=== PATIENT | female | born 1930 | race Caucasian/White ===

== ENCOUNTER → 2017-02-07 | Outpatient (CLI) | payer MEDICARE, BC ==
[~2017-02-07] MED LIST: ASPI1TAB69 PO; CALC500T37 PO; DENO60P SQ; MULTCAP2 PO; OCUVTAB PO; PROB1TAB PO
[2017-02-07 16:25] LABS: ALBUMIN 3.6 GM/DL (3.4-5.0); AST (GOT) 21 U/L (15-37); BICARBONATE 26.9 MEQ/L (21.0-32.0); BLOOD UREA NITROGEN 26 MG/DL (7-18); CHLORIDE 104 MEQ/L (98-107); CREATININE 0.82 MG/DL (0.50-1.00); GLOMERULAR FILTRATION RATE 66 ML/MIN (>89); GLUCOSE,RANDOM 84 MG/DL (74-106); SODIUM (NA) 138 MEQ/L (136-145)
[2017-02-07 16:27] LABS: ALT (GPT) 30 U/L (10-53)
[2017-02-07 16:28] LABS: ALKALINE PHOSPHATASE 79 U/L (45-117); TOTAL BILIRUBIN ADULT 0.7 MG/DL (0.2-1.0); TOTAL PROTEIN 6.8 GM/DL (6.4-8.2)
== END ==
LOC: PLAB 11:14
PROVIDERS: ATTEND Family Medicine
DX: N95.1 Menopausal and female climacteric states (principal)
CPT/HCPCS: 36415; 80053

== ENCOUNTER 2017-08-22 09:57 | Observation (INO) | payer MEDICARE, BC ==
[~2017-08-22] VITALS: Ht 170.2 cm; Wt 77.5 kg
[2017-08-22 10:13] VITALS: BP 133/71; PULSE 71; RESP 16; TEMP 98.4; O2SAT 98
[2017-08-22] MEDS ORDERED: ASPIRIN 81 MG CHEW TAB PO ONE (10:15)
[2017-08-22] MEDS ORDERED: SODIUM CHLORIDE 0.9% FLUSH 10 ML FLUSH IVF PRN (10:15)
[2017-08-22] MEDS ORDERED: SODIUM CHLORID 0.9% 500 ML INJ 500 ML IV ONE (10:15)
--- NOTE | 2017-08-22 10:22 | PD ---
HPI Chief Complaint: Chest Pain Time Seen by Provider: 10:07 Travel History International Travel<30 days: No Contact w/Intl Traveler<30days: No Traveled to known affect area: No History of Present Illness HPI The patient is a 87-year-old female who presents to the emergency department for elevated heart rate. The patient states she had some nausea and vomiting last night as well as 3 episodes of diarrhea which she described as small and loose. The patient then went to have an outpatient x-ray performed of her lower extremity this morning when she became short of breath. It was noted the patient's heart rate was elevated at that time and EMS was called. According to EMS the patient's heart rate was approximately 170, appear to be SVT, and the patient received adenosine 6 mg intravenously prior to arrival, her heart rate then went into the 70s and appear to be in a sinus rhythm. The patient denies any known history of atrial flutter, atrial fibrillation, or SVT. She does have a history of hypertension and is followed by her local athletic turf worker, Dr. Zhu. The patient states she had no chest pain at that time and her shortness of breath has resolved. The patient also states her nausea and vomiting has resolved and she has had no diarrhea since this morning. She does note subjective fevers without chills. Symptoms are moderate. 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.) Genitourinary: Yes (kidney cancer right side) Hepatitis: No Hiatal Hernia: No Hypertension: No Immune Disorder: No Implanted Vascular Access Dvce: No Musculoskeletal: No Neurologic: No Psychiatric: No Reproductive: No Respiratory: No Thyroid Disease: No ?: Not Menopausal: Yes Dilation and Curettage (D&C): Yes Past Surgical History Abdominal Surgery: Yes (gallbladder removed) Cholecystectomy: Yes Eye Surgery: Yes (nano cataract ) Genitourinary Surgery: Yes (RIGHT KIDNEY REMOVED ) Gynecologic Surgery: Yes (right oophorectomy d and c) Mastectomy: Yes (RIGHT) Thoracic Surgery: Yes (right breast removed) Other Surgery: Yes (RIGHT OVARY) Social History Alcohol Use: No Tobacco Use: No Substance Use: No Allergies-Medications (Allergen,Severity, Reaction): Coded Allergies: codeine (Unverified Allergy, Severe, HYPEREXCITED, 08/22/17) lovastatin (Unverified Allergy, Severe, MUSCLE CRAMPS, 08/22/17) RXN TO ALL STATINS Reported Meds & Prescriptions Reported Meds & Active Scripts Active Reported Aspirin Children's (Aspirin) 81 Mg Chew 81 Mg CHEW EVERY OTHER DAY Ocuvite (Multiple Vitamins W/ Minerals) 1 Tab 1 Tab PO DAILY Probiotic (Probiotic Product) 1 Tab Tab 1 Tab PO DAILY Calcium Ascorbate 500 Mg Tab 500 Mg PO BID Review of Systems Except as stated in HPI: all other systems reviewed are Neg General / Constitutional: Positive: Fever (Subjective) HENT: No: Lightheadedness Cardiovascular: Positive: Tachycardia, No: Chest Pain or Discomfort, Palpitations, Syncope Respiratory: Positive: Shortness of Breath Gastrointestinal: Positive: Nausea, Vomiting, Diarrhea, No: Abdominal Pain Neurologic: No: Dizziness, Syncope Physical Exam Narrative GENERAL: Awake, alert, pleasant 87-year-old female who appears her stated age and is in no acute respiratory distress. SKIN: Focused skin assessment warm/dry. HEAD: Atraumatic. Normocephalic. EYES: No injection or drainage. ENT: No nasal bleeding or discharge. Mucous membranes pink and moist. NECK: Trachea midline. No JVD. CARDIOVASCULAR: Regular rate and rhythm. No murmur appreciated. Heart rate in the 70s. RESPIRATORY: No accessory muscle use. Clear to auscultation. Breath sounds equal bilaterally. GASTROINTESTINAL: Abdomen soft, non-tender, nondistended. No rebound tenderness. MUSCULOSKELETAL: No obvious deformities. No clubbing. No cyanosis. No edema. NEUROLOGICAL: Awake and alert. No obvious cranial nerve deficits. Motor grossly within normal limits. Normal speech. PSYCHIATRIC: Appropriate mood and affect; insight and judgment normal. Data Data Last Documented VS Vital Signs Date Time Temp Pulse Resp B/P (MAP) Pulse Ox O2 Delivery O2 Flow Rate FiO2 08/22/17 10:27 16 98 Room Air 08/22/17 10:13 98.4 71 Orders Orders Electrocardiogram (08/22/17 10:15) Ckmb (Isoenzyme) Profile (08/22/17 10:15) Complete Blood Count With Diff (08/22/17 10:15) Comprehensive Metabolic Panel (08/22/17 10:15) Magnesium (Mg) (08/22/17 10:15) Prothrombin Time / Inr (Pt) (08/22/17 10:15) Act Partial Throm Time (Ptt) (08/22/17 10:15) Troponin I (08/22/17 10:15) Ecg Monitoring (08/22/17 10:15) Bilateral Bp Monitoring (08/22/17 10:15) Iv Access Insert/Monitor (08/22/17 10:15) Oximetry (08/22/17 10:15) Oxygen Administration (08/22/17 10:15) Aspirin Chew (Aspirin Chew) (08/22/17 10:15) Sodium Chloride 0.9% Flush (Ns Flush) (08/22/17 10:15) Sodium Chlorid 0.9% 500 Ml Inj (Ns 500 M (08/22/17 10:15) Admit Order (Ed Use Only) (08/22/17 12:08) Labs Laboratory Tests Test 08/22/17 10:15 White Blood Count 7.7 TH/MM3 Red Blood Count 3.71 MIL/MM3 Hemoglobin 11.8 GM/DL Hematocrit 34.8 % Mean Corpuscular Volume 94.0 FL Mean Corpuscular Hemoglobin 31.8 PG Mean Corpuscular Hemoglobin Concent 33.9 % Red Cell Distribution Width 14.5 % Platelet Count 217 TH/MM3 Mean Platelet Volume 9.1 FL Neutrophils (%) (Auto) 82.2 % Lymphocytes (%) (Auto) 6.0 % Monocytes (%) (Auto) 9.5 % Eosinophils (%) (Auto) 1.9 % Basophils (%) (Auto) 0.4 % Neutrophils # (Auto) 6.3 TH/MM3 Lymphocytes # (Auto) 0.5 TH/MM3 Monocytes # (Auto) 0.7 TH/MM3 Eosinophils # (Auto) 0.1 TH/MM3 Basophils # (Auto) 0.0 TH/MM3 CBC Comment DIFF FINAL Differential Comment Prothrombin Time 10.0 SEC Prothromb Time International Ratio 1.0 RATIO Activated Partial Thromboplast Time 19.1 SEC Blood Urea Nitrogen 28 MG/DL Creatinine 1.18 MG/DL Random Glucose 119 MG/DL Total Protein 6.4 GM/DL Albumin 3.3 GM/DL Calcium Level 8.0 MG/DL Magnesium Level 2.2 MG/DL Alkaline Phosphatase 74 U/L Aspartate Amino Transf (AST/SGOT) 31 U/L Alanine Aminotransferase (ALT/SGPT) 40 U/L Total Bilirubin 0.5 MG/DL Sodium Level 140 MEQ/L Potassium Level 4.4 MEQ/L Chloride Level 107 MEQ/L Carbon Dioxide Level 24.4 MEQ/L Anion Gap 9 MEQ/L Estimat Glomerular Filtration Rate 43 ML/MIN Total Creatine Kinase 94 U/L Troponin I 0.10 NG/ML MDM Medical Decision Making Medical Screen Exam Complete: Yes Emergency Medical Condition: Yes Medical Record Reviewed: Yes Interpretation(s) EKG reveals normal sinus rhythm with a rate of 70. Nonspecific T-wave changes. Laboratory Tests Test 08/22/17 10:15 White Blood Count 7.7 TH/MM3 Red Blood Count 3.71 MIL/MM3 Hemoglobin 11.8 GM/DL Hematocrit 34.8 % Mean Corpuscular Volume 94.0 FL Mean Corpuscular Hemoglobin 31.8 PG Mean Corpuscular Hemoglobin Concent 33.9 % Red Cell Distribution Width 14.5 % Platelet Count 217 TH/MM3 Mean Platelet Volume 9.1 FL Neutrophils (%) (Auto) 82.2 % Lymphocytes (%) (Auto) 6.0 % Monocytes (%) (Auto) 9.5 % Eosinophils (%) (Auto) 1.9 % Basophils (%) (Auto) 0.4 % Neutrophils # (Auto) 6.3 TH/MM3 Lymphocytes # (Auto) 0.5 TH/MM3 Monocytes # (Auto) 0.7 TH/MM3 Eosinophils # (Auto) 0.1 TH/MM3 Basophils # (Auto) 0.0 TH/MM3 CBC Comment DIFF FINAL Differential Comment Prothrombin Time 10.0 SEC Prothromb Time International Ratio 1.0 RATIO Activated Partial Thromboplast Time 19.1 SEC Blood Urea Nitrogen 28 MG/DL Creatinine 1.18 MG/DL Random Glucose 119 MG/DL Total Protein 6.4 GM/DL Albumin 3.3 GM/DL Calcium Level 8.0 MG/DL Magnesium Level 2.2 MG/DL Alkaline Phosphatase 74 U/L Aspartate Amino Transf (AST/SGOT) 31 U/L Alanine Aminotransferase (ALT/SGPT) 40 U/L Total Bilirubin 0.5 MG/DL Sodium Level 140 MEQ/L Potassium Level 4.4 MEQ/L Chloride Level 107 MEQ/L Carbon Dioxide Level 24.4 MEQ/L Anion Gap 9 MEQ/L Estimat Glomerular Filtration Rate 43 ML/MIN Total Creatine Kinase 94 U/L Troponin I 0.10 NG/ML Differential Diagnosis Differential diagnosis includes arrhythmia, atrial flutter, atrial fibrillation , SVT, ventricular tachycardia, pulmonary embolism, dehydration, gastroenteritis. Narrative Course IV was established, labs are drawn and sent, and the patient was placed on cardiac telemetry monitoring and continuous pulse oximetry monitoring. EKG was ordered and interpreted. The patient was administered normal saline 500 cc, electrolytes are sent to lab. The patient's electrolytes are unremarkable. Cardiac telemetry monitoring revealed the patient's heart rate maintained in the 60s and 70s with no rebound tachyarrhythmias. The shortness of breath had resolved. I highly doubt pulmonary embolism as the patient has no hypoxia and 1 dose of adenosine discontinued the tachyarrhythmia. I believe that the patient had a pulmonary embolism she would have been hypoxic and the tachyarrhythmia would have remains. The patient may have underlying SVT versus atrial flutter. She did have elevated troponin is 0.10, may be related to the tachyarrhythmia versus ischemia. Therefore, patient will be a 23 hour observation. Physician Communication Physician Communication I discussed the patient with Dr. Joiner who agrees with 23 hour observation. Diagnosis Primary Impression: Tachyarrhythmia Additional Impression: Elevated troponin Admitting Information Admitting Physician Requests: Observation Condition: Stable Noe Hernandez MD August 22, 2017 10:22
[2017-08-22 10:27] VITALS: RESP 16; O2SAT 98
[2017-08-22] MEDS ORDERED: ASPI81CH7 CHEW (10:31)
[2017-08-22 10:56] LABS: AUTOMATED NEUTROPHIL # 6.3 TH/MM3 (1.8-7.7); BASOPHIL % 0.4 % (0.0-2.0); EOSINOPHIL # 0.1 TH/MM3 (0-0.4); EOSINOPHIL % 1.9 % (0.0-4.0); HEMATOCRIT 34.8 % (35.0-46.0); HEMOGLOBIN 11.8 GM/DL (11.6-15.3); LYMPHOCYTE # 0.5 TH/MM3 (1.0-4.8); MEAN CORPUSCULAR HEMOGLOBIN 31.8 PG (27.0-34.0); MEAN CORPUSCULAR HGB CONC 33.9 % (32.0-36.0); MEAN PLATELET VOLUME 9.1 FL (7.0-11.0); MONO % 9.5 % (0.0-8.0); MONOCYTE # 0.7 TH/MM3 (0-0.9); NEUT % 82.2 % (16.0-70.0); PLATELET COUNT 217 TH/MM3 (150-450); RED BLOOD COUNT 3.71 MIL/MM3 (4.00-5.30); RED CELL DISTRIBUTION WIDTH 14.5 % (11.6-17.2); WHITE BLOOD COUNT 7.7 TH/MM3 (4.0-11.0)
[2017-08-22 11:37] LABS: ALBUMIN 3.3 GM/DL (3.4-5.0); ALKALINE PHOSPHATASE 74 U/L (45-117); ALT (GPT) 40 U/L (10-53); AST (GOT) 31 U/L (15-37); BLOOD UREA NITROGEN 28 MG/DL (7-18); CREATININE 1.18 MG/DL (0.50-1.00); GLOMERULAR FILTRATION RATE 43 ML/MIN (>89); GLUCOSE,RANDOM 119 MG/DL (74-106); MAGNESIUM 2.2 MG/DL (1.5-2.5); SODIUM (NA) 140 MEQ/L (136-145); TOTAL BILIRUBIN ADULT 0.5 MG/DL (0.2-1.0); TOTAL PROTEIN 6.4 GM/DL (6.4-8.2)
[2017-08-22 11:38] LABS: BICARBONATE 24.4 MEQ/L (21.0-32.0); CHLORIDE 107 MEQ/L (98-107)
[2017-08-22] MEDS ORDERED: SODIUM CHLORIDE 0.9% 500 ML BAG OTHER ONE (12:11)
[2017-08-22] MEDS ORDERED: ACETAMINOPHEN 500 MG CPLT PO PRN (13:00)
[2017-08-22] MEDS ORDERED: SODIUM CHLORIDE 0.9% FLUSH 10 ML FLUSH IV FLUSH PRN (13:00)
[2017-08-22] MEDS ORDERED: ENOXAPARIN SODIUM 40 MG/0.4 ML SYRINGE SQ SCH (13:00)
--- NOTE | 2017-08-22 13:08 | HHI.HP ---
cc: Brunilda Clark MD [facility] Service [facility] Primary Care Physician Brunilda Clark MD Admission Diagnosis Arrhythmia, elevated troponin Diagnoses: (1) Elevated troponin (2) Tachyarrhythmia Chief Complaint: Elevated heart rate Travel History International Travel<30 Days: No Contact w/Intl Traveler <30 Da: No Traveled to Known Affected Are: No History of Present Illness The patient is an 87 year old female brought to the ER for evaluation of elevated heart rate. She had nausea, vomiting, and 3 loose stools last night. This morning she went to have an outpatient xray done on her left leg, which has been painful for a few weeks. She was noted at that time to have elevated heart rate. EMS was called and patient's heart rate was approximately 170, apparently SVT. She was given adenosine 6 mg IV. She denies chest pain. She had some shortness of breath, but that has resolved. No nausea, vomiting, diarrhea today. Review of Systems Constitutional: DENIES: Fever, Chills, Night Sweats Eyes: DENIES: Blurred vision, Vision loss Ears, nose, mouth, throat: DENIES: Hearing loss Respiratory: DENIES: Cough, Wheezing, Sputum production, Shortness of breath Cardiovascular: DENIES: Chest pain, Palpitations, Dyspnea on Exertion, Lower Extremity Edema Gastrointestinal: DENIES: Abdominal pain, Constipation, Diarrhea, Nausea, Vomiting Genitourinary: DENIES: Urinary frequency, Urinary incontinence, Urgency, Hematuria, Dysuria, Nocturia Musculoskeletal: DENIES: Joint pain, Muscle aches Integumentary: DENIES: Pruritus, Rash Hematologic/lymphatic: DENIES: Bruising Neurologic: DENIES: Headache Past Family Social History Past Medical History History of breast cancer History of renal cancer History of lymphoma Past Surgical History Right nephrectomy with right oophorectomy Right mastectomy Cholecystectomy Bilateral cataract surgery Reported Medications Aspirin Children's (Aspirin) 81 Mg Chew 81 Mg CHEW EVERY OTHER DAY Ocuvite (Multiple Vitamins W/ Minerals) 1 Tab 1 Tab PO DAILY Probiotic (Probiotic Product) 1 Tab Tab 1 Tab PO DAILY Calcium Ascorbate 500 Mg Tab 500 Mg PO BID Allergies: Coded Allergies: codeine (Unverified Allergy, Severe, HYPEREXCITED, 08/22/17) lovastatin (Unverified Allergy, Severe, MUSCLE CRAMPS, 08/22/17) RXN TO ALL STATINS Family History Breast cancer Social History She quit smoking many years ago. Reports rare alcohol use. Denies illicit drug use. Physical Exam Vital Signs Vital Signs Date Time Temp Pulse Resp B/P (MAP) Pulse Ox O2 Delivery O2 Flow Rate FiO2 08/22/17 10:27 16 98 Room Air 08/22/17 10:13 98.4 71 16 133/71 (91) 98 Room Air Physical Exam GENERAL: Elderly female in no acute distress. HEENT: Normocephalic, atraumatic. Pupils equal, round and reactive. Extraocular movements intact. No scleral icterus. No injection or drainage. Oropharynx is clear. Mucous membranes are moist. CARDIOVASCULAR: Regular rate and rhythm without murmurs, gallops, or rubs. RESPIRATORY: Clear to auscultation. No wheezes, rales, or rhonchi. Breathing is non-labored. GASTROINTESTINAL: Abdomen soft, non-tender, nondistended. EXTREMITIES: No lower extremity edema. No calf tenderness. PSYCH: Alert and oriented x 3. Laboratory Laboratory Tests Test 08/22/17 10:15 White Blood Count 7.7 Red Blood Count 3.71 Hemoglobin 11.8 Hematocrit 34.8 Mean Corpuscular Volume 94.0 Mean Corpuscular Hemoglobin 31.8 Mean Corpuscular Hemoglobin Concent 33.9 Red Cell Distribution Width 14.5 Platelet Count 217 Mean Platelet Volume 9.1 Neutrophils (%) (Auto) 82.2 Lymphocytes (%) (Auto) 6.0 Monocytes (%) (Auto) 9.5 Eosinophils (%) (Auto) 1.9 Basophils (%) (Auto) 0.4 Neutrophils # (Auto) 6.3 Lymphocytes # (Auto) 0.5 Monocytes # (Auto) 0.7 Eosinophils # (Auto) 0.1 Basophils # (Auto) 0.0 CBC Comment DIFF FINAL Differential Comment Prothrombin Time 10.0 Prothromb Time International Ratio 1.0 Activated Partial Thromboplast Time 19.1 Blood Urea Nitrogen 28 Creatinine 1.18 Random Glucose 119 Total Protein 6.4 Albumin 3.3 Calcium Level 8.0 Magnesium Level 2.2 Alkaline Phosphatase 74 Aspartate Amino Transf (AST/SGOT) 31 Alanine Aminotransferase (ALT/SGPT) 40 Total Bilirubin 0.5 Sodium Level 140 Potassium Level 4.4 Chloride Level 107 Carbon Dioxide Level 24.4 Anion Gap 9 Estimat Glomerular Filtration Rate 43 Total Creatine Kinase 94 Troponin I 0.10 Result Diagram: 08/22/17 1015 08/22/17 1015 Caplouise VTE Risk Assessment Caprini VTE Risk Assessment: Mod/High Risk (score >= 2) Caprini Risk Assessment Model Point Value = 1 Point Value = 2 Point Value = 3 Point Value = 5 Age 41-60 Minor surgery BMI > 25 kg/m2 Swollen legs Varicose veins or History of unexplained or recurrent spontaneous Oral contraceptives or hormone replacement Sepsis (< 1 month) Serious lung disease, including pneumonia (< 1 month) Abnormal pulmonary function Acute myocardial infarction Congestive heart failure (< 1 month) History of inflammatory bowel disease Medical patient at bed rest Age 61-74 Arthroscopic surgery Major open surgery (> 45 min) Laparoscopic surgery (> 45 min) Malignancy Confined to bed (> 72 hours) Immobilizing plaster cast Central venous access Age >= 75 History of VTE Family history of VTE Factor V Leiden Prothrombin [id number] Lupus anticoagulant Anticardiolipin antibodies Elevated serum homocysteine Heparin-induced thrombocytopenia Other congenital or acquired thrombophilia Stroke (< 1 month) Elective arthroplasty Hip, pelvis, or leg fracture Acute spinal cord injury (< 1 month) Prophylaxis Regimen Total Risk Factor Score Risk Level Prophylaxis Regimen 0-1 Low Early ambulation 2 Moderate Order ONE of the following: *Sequential Compression Device (SCD) *Heparin 5000 units SQ BID 3-4 Higher Order ONE of the following medications: *Heparin 5000 units SQ TID *Enoxaparin/Lovenox 40 mg SQ daily (WT < 150 kg, CrCl > 30 mL/min) *Enoxaparin/Lovenox 30 mg SQ daily (WT < 150 kg, CrCl > 10-29 mL/min) *Enoxaparin/Lovenox 30 mg SQ BID (WT < 150 kg, CrCl > 30 mL/min) AND/OR *Sequential Compression Device (SCD) 5 or more Highest Order ONE of the following medications: *Heparin 5000 units SQ TID (Preferred with Epidurals) *Enoxaparin/Lovenox 40 mg SQ daily (WT < 150 kg, CrCl > 30 mL/min) *Enoxaparin/Lovenox 30 mg SQ daily (WT < 150 kg, CrCl > 10-29 mL/min) *Enoxaparin/Lovenox 30 mg SQ BID (WT < 150 kg, CrCl > 30 mL/min) AND *Sequential Compression Device (SCD) Assessment and Plan Assessment and Plan 1. Tachyarrhythmia: Patient is now in sinus rhythm with controlled rate. Continue telemetry monitoring. Consult cardiology. 2. Mildly elevated troponin: Check serial cardiac enzymes and EKGs. Consult cardiology. 3. Acute kidney injury: Patient is status post right nephrectomy. Monitor BUN and creatinine. Avoid nephrotoxins. Repeat labs in the morning. 4. DVT prophylaxis: Heparin. Yves Joiner MD August 22, 2017 13:08
[2017-08-22 13:47] VITALS: BP 142/63; PULSE 64; RESP 16; O2SAT 97
[2017-08-22] MEDS: HEPARIN SODIUM - SQ 10,000 UNITS/ML VIAL SQ SCH ×2 (14:00→21:04)
[2017-08-22 17:08] VITALS: BP 130/60; PULSE 68; RESP 20; TEMP 96.4; O2SAT 99
--- NOTE | 2017-08-22 18:20 | EKG ---
Date Performed: 08/22/2017 Time Performed: 10:32:21 PTAGE: 87 years EKG: Sinus rhythm NONSPECIFIC T-WAVE ABNORMALITY BORDERLINE ECG PREVIOUS TRACING : 02/27/2015 10.39 Since the previous tracing, no significant change noted DOCTOR: Mi Zhu Interpretating Date/Time 08/22/2017 18:19:29
--- NOTE | 2017-08-22 19:13 | MB ---
cc: Dank Blue MD, Vance E MD DATE: 08/22/2017 REASON FOR CONSULTATION: Evaluation of SVT. HISTORY OF PRESENT ILLNESS: Arleen Weinberg is an 87-year-old woman. She apparently has a prior history of SVT had an episode 3-4 years ago according to her. She started feeling bad at 6 p.m. last night, short of breath and dizzy. She went to Dr. Clark's office to have x-rays but, while there, they discovered that she was in SVT. EVAC came. We have strips clearly showing a regular SVT at 170, but it converts to sinus rhythm with IV adenosine. The patient denies any chest pain. She was not aware of her heart beating fast when this occurred. PAST MEDICAL HISTORY: Includes breast cancer, carotid disease, dyslipidemia, chronic dyspnea, hypertension, normal cardiac catheterization in 2009, previous SVT. PAST SURGICAL HISTORY: Includes carpal tunnel release, cataract repair, cholecystectomy, D and C, mastectomy right breast, nephrectomy of the right kidney, oophorectomy. FAMILY HISTORY: Negative for heart disease. SOCIAL HISTORY: She quit smoking in 1994. She started smoking; however, when she was young. She is . She lives alone. She has 4 children. She is from [place]. She worked as a manufacturing maintenance manager. REVIEW OF SYSTEMS: Noncontributory. ALLERGIES: CODEINE, LOVASTATIN PHYSICAL EXAMINATION: GENERAL: Well-developed, well-nourished, elderly female in no acute distress. VITAL SIGNS: Charted. HEENT: Unremarkable. NECK: No JVD. No bruits. CHEST: Clear to auscultation. CARDIOVASCULAR: S1, S2. Regular rate and rhythm, 2/6 systolic ejection murmur. ABDOMEN: Soft, nontender. EXTREMITIES: Good femoral pulses. Pedal pulses are reduced. CARDIOLOGY STUDIES: Her EKG shows sinus rhythm, some nonspecific T-wave flattening. LABORATORY DATA: Hematocrit is 34.8, troponin is 0.1, creatinine is 1.18. ASSESSMENT: An 83-year-old woman who appears to have been in SVT about 15 hours that broke with adenosine. This is not her first episode. She had a similar episode a few years ago. Troponin is nonspecifically elevated and she has a history of normal coronaries on a catheterization in 2009. RECOMMENDATIONS: I am going to to consult Dr. Poole to evaluate for possible electrophysiology study. Further therapy to be determined. MD AIDEE Burgess/ , 06:54 PM , 07:13 PM
[2017-08-22 19:30] LABS: TROPONIN I 0.17 NG/ML (0.02-0.05)
[2017-08-22 20:21] VITALS: BP 133/59; PULSE 75; RESP 18; TEMP 98.1; O2SAT 99
[2017-08-22] MEDS ORDERED: [UNRECOGNIZED DRUG - OTHER] PO SCH (21:00)
[2017-08-22] MEDS: SODIUM CHLORIDE 0.9% FLUSH 10 ML FLUSH IV FLUSH SCH (21:03)
[2017-08-23] VITALS (11 sets, daily range): BP systolic 131–176; BP diastolic 58–74; PULSE 61–84; RESP 16–18; TEMP 98–98.6; O2SAT 94–99
[2017-08-23 00:41] LABS: TROPONIN I 0.18 NG/ML (0.02-0.05)
[2017-08-23] MEDS: HEPARIN SODIUM - SQ 10,000 UNITS/ML VIAL SQ SCH ×3 (05:49→21:19)
[2017-08-23 07:37] LABS: BICARBONATE 24.6 MEQ/L (21.0-32.0); CREATININE 0.84 MG/DL (0.50-1.00)
[2017-08-23] MEDS: MULTIVITAMIN-OPHTHALMIC 1 TAB PO SCH (08:46)
[2017-08-23] MEDS: SODIUM CHLORIDE 0.9% FLUSH 10 ML FLUSH IV FLUSH SCH ×2 (08:49→21:19)
--- NOTE | 2017-08-23 09:12 | HHI.PR ---
Subjective Remarks Follow up for SVT. The patient denies any chest pain, palpitations, shortness of breath overnight. Denies any lightheadedness or dizziness. Patient explains that she initially went to her primary care's office yesterday for evaluation of left knee pain after she hit it on a dresser. She reports diffuse left anterior knee pain with some associated swelling. She states she has had difficulty ambulating but is still able to take a few steps. She also reports over the past few days she has had some congestion and yesterday she coughed up some green phlegm. She states that since then her cough has improved and has only produced clear sputum. She states her doctor told her he would check a chest x-ray. Otherwise patient denies any other medical complaints including no fever/chills, abdominal pain, diarrhea, or urinary complaints. Objective Vitals Vital Signs Date Time Temp Pulse Resp B/P (MAP) Pulse Ox O2 Delivery O2 Flow Rate FiO2 08/23/17 07:21 98.6 65 18 176/71 (106) 99 08/23/17 05:15 15 08/23/17 04:30 98.3 70 16 158/68 (98) 94 08/23/17 03:45 70 08/23/17 00:54 98.0 70 16 131/58 (82) 94 08/23/17 00:35 61 08/22/17 20:21 98.1 75 18 133/59 (83) 99 08/22/17 17:08 96.4 68 20 130/60 (83) 99 08/22/17 15:04 08/22/17 13:47 64 16 142/63 (89) 97 Room Air 08/22/17 10:27 16 98 Room Air 08/22/17 10:13 98.4 71 16 133/71 (91) 98 Room Air I/O 08/22/17 08/22/17 08/22/17 08/23/17 08/23/17 08/23/17 07:00 15:00 23:00 07:00 15:00 23:00 Intake Total 500 ml Balance 500 ml Intake IV Total 500 ml Result Diagram: 08/22/17 1015 08/23/17 0640 Objective Remarks GENERAL: Well-nourished, well-developed pleasant elderly female patient in [facility]. SKIN: Warm and dry. No rash. HEENT: Normocephalic. Atraumatic. Pupils equal and round. Mucous membranes pink and moist. NECK: Supple. Trachea midline. CARDIOVASCULAR: Regular rate and rhythm. 2/6 systolic ejection murmur. RESPIRATORY: No accessory muscle use. Clear to auscultation. Breath sounds equal bilaterally. GASTROINTESTINAL: Abdomen soft, non-tender, nondistended. Normoactive bowel sounds x4. MUSCULOSKELETAL: No obvious deformities. Extremities without clubbing, cyanosis , or edema. Left anterior knee with minimal edema, no ecchymosis, tender to palpation at medial aspect, pain upon active ROM. NEUROLOGICAL: Awake and alert. No obvious cranial nerve deficits. Motor grossly within normal limits. Moving all extremities spontaneously. Normal speech. PSYCHIATRIC: Appropriate mood and affect; insight and judgment normal. Medications and IVs Current Medications Medications (Trade) Dose Ordered Sig/Juan Route Start Time Stop Time Status Last Admin (Aspirin Chew) 81 mg EVERY OTHER DAY CHEW 08/24/17 09:00 (Ocuvite) 1 tab DAILY PO 08/23/17 09:00 08/23/17 08:46 Patient Own Medication PT OWN MED: CALC... BID PO 08/22/17 21:00 Future Hold (NS Flush) 2 ml BID IV FLUSH 08/22/17 21:00 08/23/17 08:49 (NS Flush) 2 ml UNSCH PRN IV FLUSH 08/22/17 13:00 (Tylenol) 500 mg Q4H PRN PO 08/22/17 13:00 08/23/17 04:15 (Heparin Inj) 5,000 units Q8HR SQ 08/22/17 14:00 08/23/17 05:49 A/P Problem List: (1) Elevated troponin ICD Code: R74.8 - Abnormal levels of other serum enzymes Status: Acute (2) Tachyarrhythmia ICD Code: R00.0 - Tachycardia, unspecified Status: Acute Assessment and Plan 87-year-old female with history of breast cancer s/p right mastectomy, renal cancer s/p right nephrectomy, lymphoma in remission, presents via EVAC with SVT. SVT: Patient's HR 170, rhythm SVT, given IV adenosine 6 mg 1 en route via EVAC , with good response.\ -Continue patient's aspirin -Monitor on telemetry -Serial troponins trended 0.10 --> 0.17 --> 0.18. Suspect secondary to cardiac demand with SVT. -Cardiology consulted, Dr. Blue requested evaluation by EP bail bonding agent Dr. Poole -Check echocardiogram -HR has been controlled since arrival Elevated Troponin: suspect secondary to cardiac demand from arrhythmia as above. -no complaints of chest pain -cardiology consulted as above RONALD: patient is s/p right nephrectomy. Cr 1.18, previously Cr 0.93 in . -avoid nephrotoxins -s/p IVF hydration -repeat Cr 0.84, resolved Left Knee Pain: suspect knee sprain vs contusion. Patient injured left knee on dresser. -check left knee xray -ice pack prn -PT consult Cough/Congestion: suspect viral URI, however rule out pneumonia. Afebrile, no leukocytosis. -check chest xray DVT Prophylaxis: heparin sq Discharge Planning Discharge pending CXR, knee xray, Echocardiogram, and evaluation by Dr. Poole. Rena Ortiz PA-C August 23, 2017 9:12 am
--- NOTE | 2017-08-23 10:46 | RADRPT ---
EXAM DATE/TIME: 08/23/2017 10:08 [facility] COMPARISON: No previous studies available for comparison. INDICATIONS : Left anterior knee pain. MEDICAL HISTORY : Carcinoma, breast. Lymphoma. SURGICAL HISTORY : Mastectomy, right. Nephrectomy, right. Cholecystectomy. Hysterectomy. Oophorectomy, right. ENCOUNTER: Initial ACUITY: 2 days PAIN SCORE: 5/10 LOCATION: Left knee. FINDINGS: Four view examination of the left knee demonstrates no evidence of fracture or dislocation. Bony min eralization is normal there is mild joint space narrowing and osteophyte formation in the medial and patellofemoral compartments. Patella is intact. The suprapatellar soft tissues have a normal configur ation. CONCLUSION: 1. Mild degenerative osteoarthritis of the medial and patellofemoral compartments. 2. No acute fracture or dislocation. Nader Medina MD on August 23, 2017 at 10:41 Board Certified Radiologist. This report was verified electronically.
--- NOTE | 2017-08-23 10:48 | RADRPT ---
EXAM DATE/TIME: 08/23/2017 10:10 [facility] COMPARISON: CHEST PA & LAT, June 27, 2010, 8:51. INDICATIONS : Cough. MEDICAL HISTORY : Carcinoma, breast. Lymphoma. SURGICAL HISTORY : Mastectomy, right. Nephrectomy, right. Cholecystectomy. Hysterectomy. Oophorectomy, right. ENCOUNTER: Initial ACUITY: 2 days PAIN SCORE: 0/10 LOCATION: Bilateral chest FINDINGS: Diffuse interstitial prominence without new focal pleural or parenchymal opacities. Cardiomediastinal contours are within normal limits. Bony thorax is intact. CONCLUSION: 1. No acute cardiopulmonary disease. Nader Medina MD on August 23, 2017 at 10:44 Board Certified Radiologist. This report was verified electronically.
--- NOTE | 2017-08-23 21:32 | MB ---
cc: Kevin Poole MD DATE: 08/23/2017 REASON FOR CONSULTATION: Supraventricular tachyarrhythmia. HISTORY OF PRESENT ILLNESS: Mrs. Weinberg is an 87-year-old female with history of tachyarrhythmia, previous ablation around 4 years ago. According to the patient, history of tachyarrhythmia recorded. The last hospitalization was around 4 years ago. It was at her primary physician's office, developed supraventricular tachyarrhythmia. EVAC was called. The patient received adenosine, went into sinus rhythm. Was admitted, evaluated by Dr. Blue. I was consulted for evaluation and management. The chart was reviewed. The patient was evaluated. ALLERGIES: CODEINE AND LOVASTATIN. SOCIAL HISTORY: The patient denies smoking and drinking. FAMILY HISTORY: Noncontributory to her current medical condition. MEDICATIONS: Currently Mrs. Weinberg is on acetaminophen, aspirin, heparin. REVIEW OF SYSTEMS: She has had no chest pain, no chest discomfort. No fever. PHYSICAL EXAMINATION: GENERAL: Alert, fully oriented. VITAL SIGNS: Blood pressure 152/68, pulse 68, respiratory rate 18. LUNGS: Good air entry bilaterally. CARDIOVASCULAR: S1, S2. Regular. ABDOMEN: Soft. No mass. EXTREMITIES: No edema. DIAGNOSTIC DATA: Electrocardiogram on hospitalization, supraventricular tachyarrhythmia. Short VA time, later on 170 beats per minute. ____ electrocardiogram shows sinus rhythm, diffuse ST changes. LABORATORY DATA: Hemoglobin 11.8, white blood cells, 77, potassium 4.0, creatinine 0.84. Troponin 0.18, INR 1.0. ASSESSMENT AND RECOMMENDATIONS: Mrs. Weinberg ____ recorded visit of tachyarrhythmia. She is very symptomatic. The last one, she had to be brought to the emergency room. She referred no chest pain or discomfort. Troponin is okay. This is a short VA time tachyarrhythmia. I had a long conversation with her and her son. Electrophysiology study and ablation discussed. The risks, the nature and the benefits of the procedure are clearly stated to her and her son. The risks include pneumothorax, cardiac perforation, stroke and even . They understand and agreed to proceed. The patient is going to be transferred to CICU unit. Ablation Monday morning. MD Faye Mayes , 08:21 PM , 08:50 PM
--- NOTE | 2017-08-23 22:24 | EKG ---
Date Performed: 08/22/2017 Time Performed: 23:06:30 PTAGE: 87 years EKG: Sinus rhythm WITH OCCASIONAL SUPRAVENTRICULAR PREMATURE COMPLEXES NONSPECIFIC ST & T-WAVE ABNORMALITY BORDERLINE ECG PREVIOUS TRACING : 08/22/2017 16.35 Since the previous tracing, no significant change noted DOCTOR: Larry Doyle Interpretating Date/Time 08/23/2017 22:21:53
--- NOTE | 2017-08-23 22:31 | EKG ---
Date Performed: 08/22/2017 Time Performed: 16:35:42 PTAGE: 87 years EKG: Sinus rhythm NONSPECIFIC T-WAVE ABNORMALITY BORDERLINE ECG NO PREVIOUS TRACING DOCTOR: Larry Doyle Interpretating Date/Time 08/23/2017 22:30:18
[2017-08-24] VITALS (31 sets, daily range): BP systolic 127–150; BP diastolic 60–73; PULSE 54–93; RESP 16–18; TEMP 98.1–98.8; O2SAT 97–99
[2017-08-24] MEDS: HEPARIN SODIUM - SQ 10,000 UNITS/ML VIAL SQ SCH ×3 (05:19→20:42)
[2017-08-24] MEDS ORDERED: ASPIRIN 81 MG CHEW TAB CHEW SCH (09:00)
[2017-08-24] MEDS: MULTIVITAMIN-OPHTHALMIC 1 TAB PO SCH (09:27)
[2017-08-24] MEDS: SODIUM CHLORIDE 0.9% FLUSH 10 ML FLUSH IV FLUSH SCH ×2 (09:28→20:43)
[2017-08-24] MEDS ORDERED: RESP: ALBUTEROL 2.5 MG/IPRATROPIUM 0.5 MG NEB (PRN) NEB (13:30)
--- NOTE | 2017-08-24 14:14 | ECHRPT ---
Indication: Atherosclerotic heart disease of [place] coronary artery with unstable angina pectoris CONCLUSIONS The left ventricular systolic function is low normal with estimated ejection fraction of 50%. No de finite regional wall motion abnormalities.Wall thickness is normal. Normal left ventricular size. No definite significant valvular abnormalities are identified. BP: 176 / 71 HR: 65 Rhythm: Sinus MEASUREMENTS (Male / Female) Normal Values Technical Quality:Fair 2D ECHO LV Diastolic Diameter PLAX 4.3 cm 4.2 - 5.9 / 3.9 - 5.3 cm LV Systolic Diameter PLAX 3.4 cm IVS Diastolic Thickness 0.9 cm 0.6 - 1.0 / 0.6 - 0.9 cm LVPW Diastolic Thickness 0.9 cm 0.6 - 1.0 / 0.6 - 0.9 cm LV Relative Wall Thickness 0.4 LVOT Diameter 1.9 cm M-MODE Aortic Root Diameter MM 2.1 cm LA Systolic Diameter MM 3.0 cm LA Ao Ratio MM 1.4 AV Cusp Separation MM 1.6 cm DOPPLER AV Peak Velocity 137.0 cm/s AV Peak Gradient 7.5 mmHg LVOT Peak Velocity 75.0 cm/s LVOT Peak Gradient 2.3 mmHg AV Area Cont Eq pk 1.6 cm Mitral E Point Velocity 112.0 cm/s Mitral A Point Velocity 90.8 cm/s Mitral E to A Ratio 1.2 LV E' Lateral Velocity 5.9 cm/s Mitral E to LV E' Lateral Ratio 19.1 LV E' Septal Velocity 7.3 cm/s Mitral E to LV E' Septal Ratio 15.3 PV Peak Velocity 115.0 cm/s PV Peak Gradient 5.3 mmHg FINDINGS LEFT VENTRICLE The left ventricular systolic function is low normal with estimated ejection fraction of 50%. No de finite regional wall motion abnormalities.Wall thickness is normal. Normal left ventricular size. RIGHT VENTRICLE Normal right ventricular size and systolic function. LEFT ATRIUM The left atrial size is normal. RIGHT ATRIUM The right atrial size is normal. ATRIAL SEPTUM Normal atrial septal thickness without atrial level shunting by limited color doppler interrogation. AORTA The aortic root and proximal ascending aorta are normal in size on limited imaging. MITRAL VALVE Structurally normal mitral valve. No mitral valve stenosis or regurgitation. AORTIC VALVE Trileaflet aortic valve. No aortic valve stenosis or regurgitation. TRICUSPID VALVE Structurally normal tricuspid valve. No tricuspid valve stenosis or regurgitation. PULMONARY VALVE The pulmonary valve is not well visualized. VESSELS The inferior vena cava is normal in size. PERICARDIUM No pericardial effusion. Castro Medrano MD (Electronically Signed) Final Date:24 Aug 2017 14:13
[2017-08-24] MEDS: RESP: ALBUTEROL 2.5 MG/IPRATROPIUM 0.5 MG NEB (SCH) NEB ×2 (15:44→19:10)
--- NOTE | 2017-08-24 18:25 | HHI.PR ---
Subjective Remarks Patient resting in bed no chest pain no palpitation he does have wheezing on physical exam no fever or chills Objective Vitals Vital Signs Date Time Temp Pulse Resp B/P (MAP) Pulse Ox O2 Delivery O2 Flow Rate FiO2 08/24/17 18:14 93 08/24/17 17:00 80 08/24/17 16:00 68 08/24/17 15:49 98 Nasal Cannula 2.00 08/24/17 15:20 98.5 68 18 148/69 (95) 99 08/24/17 15:00 68 08/24/17 14:03 71 08/24/17 14:00 70 08/24/17 13:00 70 08/24/17 12:00 54 08/24/17 11:26 98.2 69 18 127/65 (85) 98 08/24/17 11:00 60 08/24/17 10:00 60 08/24/17 09:00 74 08/24/17 08:00 70 08/24/17 07:42 96 Nasal Cannula 1.00 08/24/17 07:42 98.5 68 17 138/62 (87) 97 08/24/17 07:00 57 08/24/17 06:00 70 08/24/17 05:00 66 08/24/17 04:00 98.4 63 18 131/60 (83) 99 08/24/17 04:00 66 08/24/17 04:00 95 Nasal Cannula 08/24/17 03:00 70 08/24/17 02:00 66 08/24/17 01:00 66 08/24/17 00:00 99 Nasal Cannula 08/24/17 00:00 71 08/24/17 00:00 98.1 70 18 150/73 (98) 99 08/23/17 23:00 74 08/23/17 22:06 78 08/23/17 21:40 94 Room Air 08/23/17 21:40 98.2 84 18 163/74 (103) 94 08/23/17 20:46 98.4 76 18 163/62 (95) 96 I/O 08/23/17 08/23/17 08/23/17 08/24/17 08/24/17 08/24/17 07:00 15:00 23:00 07:00 15:00 23:00 Intake Total 240 ml 480 ml Output Total 350 ml 650 ml Balance -110 ml -170 ml Intake Oral 240 ml 480 ml Output Urine Total 350 ml 650 ml # Voids 2 # Bowel Movements 0 Result Diagram: 08/22/17 1015 08/23/17 0640 Objective Remarks GENERAL: This is a well-nourished, well-developed patient, in no apparent distress. CARDIOVASCULAR: RRR, no gallops, or rubs. RESPIRATORY: Positive wheezing bilaterally GASTROINTESTINAL: Abdomen soft, non-tender, nondistended. Positive bowel sounds MUSCULOSKELETAL: Extremities without clubbing, cyanosis, or edema. Pedal pulses appreciated NEUROLOGICAL: Awake and alert. Moves all extremity. Normal speech.no focal neurological deficit A/P Problem List: (1) Elevated troponin ICD Code: R74.8 - Abnormal levels of other serum enzymes Status: Acute (2) Tachyarrhythmia ICD Code: R00.0 - Tachycardia, unspecified Status: Acute Assessment and Plan 87-year-old female with history of breast cancer s/p right mastectomy, renal cancer s/p right nephrectomy, lymphoma in remission, presents via [facility] with SVT. 08/24: Creatinine improved to 0.84, patient going for ablation in a.m., appreciate cardiology follow-up, patient having significant wheezing will place order for DuoNeb SVT: Patient's HR 170, rhythm SVT, given IV adenosine 6 mg 1 en route via EVAC , with good response.\ -Continue patient's aspirin -Monitor on telemetry -Serial troponins trended 0.10 --> 0.17 --> 0.18. Suspect secondary to cardiac demand with SVT. -Cardiology consulted, Dr. Blue requested evaluation by EP mailer apprentice Dr. Poole -Check echocardiogram -HR has been controlled since arrival Elevated Troponin: suspect secondary to cardiac demand from arrhythmia as above. -no complaints of chest pain -cardiology consulted as above RONALD: patient is s/p right nephrectomy. Cr 1.18, previously Cr 0.93 in . -avoid nephrotoxins -s/p IVF hydration -repeat Cr 0.84, resolved Left Knee Pain: suspect knee sprain vs contusion. Patient injured left knee on dresser. -check left knee xray -ice pack prn -PT consult Cough/Congestion: suspect viral URI, however rule out pneumonia. Afebrile, no leukocytosis. -check chest xray DVT Prophylaxis: heparin sq Discharge Planning Discharge pending CXR, knee xray, Echocardiogram, and evaluation by Dr. Poole. Gerardo Radford MD August 24, 2017 18:25
--- NOTE | 2017-08-24 20:40 | HHI.PR ---
Subjective Remarks Feeling ok Objective Vital Signs Date Time Temp Pulse Resp B/P (MAP) Pulse Ox O2 Delivery O2 Flow Rate FiO2 08/24/17 18:14 93 08/24/17 17:00 80 08/24/17 16:00 68 08/24/17 15:49 98 Nasal Cannula 2.00 08/24/17 15:20 98.5 68 18 148/69 (95) 99 08/24/17 15:00 68 08/24/17 14:03 71 08/24/17 14:00 70 08/24/17 13:00 70 08/24/17 12:00 54 08/24/17 11:26 98.2 69 18 127/65 (85) 98 08/24/17 11:00 60 08/24/17 10:00 60 08/24/17 09:00 74 08/24/17 08:00 70 08/24/17 07:42 96 Nasal Cannula 1.00 08/24/17 07:42 98.5 68 17 138/62 (87) 97 08/24/17 07:00 57 08/24/17 06:00 70 08/24/17 05:00 66 08/24/17 04:00 98.4 63 18 131/60 (83) 99 08/24/17 04:00 66 08/24/17 04:00 95 Nasal Cannula 08/24/17 03:00 70 08/24/17 02:00 66 08/24/17 01:00 66 08/24/17 00:00 99 Nasal Cannula 08/24/17 00:00 71 08/24/17 00:00 98.1 70 18 150/73 (98) 99 08/23/17 23:00 74 08/23/17 22:06 78 08/23/17 21:40 94 Room Air 08/23/17 21:40 98.2 84 18 163/74 (103) 94 08/23/17 20:46 98.4 76 18 163/62 (95) 96 I/O 08/23/17 08/23/17 08/23/17 08/24/17 08/24/17 08/24/17 07:00 15:00 23:00 07:00 15:00 23:00 Intake Total 240 ml 480 ml Output Total 350 ml 650 ml Balance -110 ml -170 ml Intake Oral 240 ml 480 ml Output Urine Total 350 ml 650 ml # Voids 2 # Bowel Movements 0 Result Diagram: 08/22/17 1015 08/23/17 0640 Imaging Alert, fully oriented Lungs: Ventilated Heart: S1, S2 regular, no gallop Abdomen: soft, no mass Ext: no edema Last Impressions Knee X-Ray 08/23/17 0000 Signed Impressions: Service Date/Time: Wednesday, August 23, 2017 10:08 - CONCLUSION: 1. Mild degenerative osteoarthritis of the medial and patellofemoral compartments. 2. No acute fracture or dislocation. Nader Medina MD Chest X-Ray 08/23/17 0000 Signed Impressions: Service Date/Time: Wednesday, August 23, 2017 10:10 - CONCLUSION: 1. No acute cardiopulmonary disease. Nader Medina MD Current Medications Medications (Trade) Dose Ordered Sig/Juan Route Start Time Stop Time Status Last Admin (Aspirin Chew) 81 mg EVERY OTHER DAY CHEW 08/24/17 09:00 08/24/17 09:28 (Ocuvite) 1 tab DAILY PO 08/23/17 09:00 08/24/17 09:27 Patient Own Medication PT OWN MED: CALC... BID PO 08/22/17 21:00 Future Hold (NS Flush) 2 ml BID IV FLUSH 08/22/17 21:00 08/24/17 09:28 (NS Flush) 2 ml UNSCH PRN IV FLUSH 08/22/17 13:00 (Tylenol) 500 mg Q4H PRN PO 08/22/17 13:00 08/23/17 04:15 (Heparin Inj) 5,000 units Q8HR SQ 08/22/17 14:00 08/24/17 15:23 (Duoneb Neb) 1 ampule QID NEB NEB 08/24/17 16:00 08/24/17 19:10 (Duoneb Neb) 1 ampule Q2HR NEB PRN NEB 08/24/17 13:30 Assessment and Plan Problem List: (1) Tachyarrhythmia ICD Codes: R00.0 - Tachycardia, unspecified Status: Acute Plan: Stable No tachy today Worries about an other episode EPS and ablation tomorrow AM Kevin Poole MD August 24, 2017 20:40
[2017-08-25] VITALS (22 sets, daily range): BP systolic 126–146; BP diastolic 65–73; PULSE 58–90; RESP 16–17; TEMP 98–98.5; O2SAT 94–95
[2017-08-25] MEDS: HEPARIN SODIUM - SQ 10,000 UNITS/ML VIAL SQ SCH (05:57)
[2017-08-25] MEDS ORDERED: ISOPROTERENOL INJ PREMIX 50 ML IV ONE (08:30)
[2017-08-25] MEDS: RESP: ALBUTEROL 2.5 MG/IPRATROPIUM 0.5 MG NEB (SCH) NEB ×3 (08:39→15:03)
[2017-08-25] MEDS ORDERED: HEPARIN-NS/PF INJ 500 ML ONE (09:11)
[2017-08-25] MEDS ORDERED: SODIUM CHLOR 0.9% 250 ML INJ 250 ML IV PRN (10:00)
[2017-08-25] MEDS ORDERED: BACITRACIN OINT 0.9 GM PKT TOP ONE (10:00)
[2017-08-25] MEDS ORDERED: LORazepam 2 MG/ML VIAL IV PUSH PRN (10:00)
[2017-08-25] MEDS ORDERED: ATROPINE SULFATE 1 MG/ML VIAL IV PUSH PRN (10:00)
[2017-08-25] MEDS ORDERED: LIDOCAINE HCL 1% 50 ML VIAL INFIL PRN (10:00)
--- NOTE | 2017-08-25 10:13 | CATHPROC ---
Patient Name: CHARY JOHNSON Study #: [id number] Initial MD: Kevin Poole Date of : 1930 Study Date: 08/25/2017 Cardiac Catheterization Report 08/25/2017 10:13:27 AM Financial #: [id number] 1 of 9 Patient Name: CHARY JOHNSON Study #: [id number] Initial MD: Kevin Poole Date of : 1930 Study Date: 08/25/2017 Entire Case Report Patient Information Patient Name CHARY JOHNSON Date of 1930 Age 87 years Financial # [id number] Gender F AlternateID Lab Number 2 Accession # Room Number Height (in) 67.0 Height (cm) 170.1 BSA 1.89 Weight (lbs) 170.5 Weight (kg) 77.5 Patient Address/Phone Number Home Address [facility] Home Phone Number [facility] [id number] Study Information Study Number Scheduled Start Study Start [id number] 08/25/2017 Aug 25 2017 9:00AM Referring Institution Admit Source Facility Department [address] [facility] - Drawing Box Tender Physician and Clinical Staff Initial Kevin Kamara Country Singer Caterina Jack,RT(R) TECH2 Other Anesthesia, WELDER PRODUCTION LINE GAS Recorder Jen Jasmine RN Scrub Elyssa Sampson,STONE REPAIRER TECH2 Procedures Performed Procedure Location (Site) Vessel Name Ablation Procedure RF Ablation Isthmus Other 08/25/2017 10:13:27 AM Financial #: [id number] 2 of 9 Patient Name: CHARY JOHNSON Study #: [id number] Initial MD: Kevin Poole Date of : 1930 Study Date: 08/25/2017 Equipment Time Life Insurance Sales Description Size Mfg Part Number Used/Scraped BIOSENSE MEREDITH CATHETER, CELSIUS, 4MM, D [id number] 09:34 FR 7 Used INC. TYPE QUAD *[id number] 09:19 MEDLINE IND[employer] PACK, CCL CUSTOM * Used *[id number] 09:19 MEDLINE PACER DECKER, LIMB * 2530 *[id number] Used [id number] 09:19 [employer] BLANKET,WARM AIR CCL * Used *[id number] 09:19 [employer] MEDICAL CATHETER, JSN, QUAD FR 5 Used *[id number] 09:19 [employer] MEDICAL CATHETER, JSN, QUAD FR 5 Used *[id number] 09:19 [employer] MEDICAL CATHETER, JSN, QUAD FR 5 Used *[id number] 09:19 [employer] MEDICAL CATHETER, JSN, QUAD FR 5 Used *[id number] 09:19 [employer]ERR[employer] MEDICAL ELECTRODE KIT, ETHLE X SURFACE * Used *[id number] 09:20 [employer] MEDICAL SHEATH, EPS, FR5 FAST CATH FR 5 Used *[id number] 472537 09:20 [employer] MEDICAL SHEATH, EPS, FR5 FAST CATH FR 5 Used *[id number] 071696 09:20 [employer] MEDICAL SHEATH, EPS, FR5 FAST CATH FR 5 Used *[id number] 341623 09:20 [employer] MEDICAL SHEATH, EPS, FR6 FAST CATH FR 6 Used *[id number] 360968 09:20 [employer] MEDICAL SHEATH, EPS, FR8 FAST CATH FR 8 Used *[id number] [facility] PAD, ELECTROSURGICAL 09:19 * [id number] *[id number] Used SURGICAL GROUNDING (BLUE) Insurance Information Insurance Payor Medicare Third Democrat Third Democrat Number MEDICARE A B MCRAB History: Allergies Allergy Reaction codeine HYPEREXCITED lovastatin MUSCLE CRAMPS History: Risk Factors Hypertension Dyslipidemia Yes Yes Labs 08/25/2017 10:13:27 AM Financial #: [id number] 3 of 9 Patient Name: CHARY JOHNSON Study #: [id number] Initial MD: Kevin Poole Date of : 1930 Study Date: 8 Hgb (g/dl) Hct (%) RBC (MIL/MM3) WBC (l/cumm) Platelets (thousands) 11.60-17.00 35.00-51.00 4.00-5.90 4.00-11.00 150.00-450.00 11.0 34 3.7 7.7 217 Glucose (mg/dl) BUN (mg/dl) Creatinine (mg/dl) BUN:Creatinine (1:x) 74.00-106.00 7.00-18.00 0.50-1.30 10.00-20.00 100 23 0.8 28.8 Na (meq/l) K (meq/l) 136.00-145.00 3.50-5.10 143 4 INR (PTT:PT) 0.90-1.10 1 Medication Medication Total Dose (Bolus/Oral) Medication Total Dosage/Unit 1% XYLOCAINE 40 mL Medications (Bolus/Oral) Medication Time Given Dosage/Unit Administered By Reason 1% XYLOCAINE 08/25/2017 9:20:50 AM 20 mL Kevin Poole 20 mL 1% XYLOCAINE given in lab by Kevin Poole in Left Groin via Subcutaneous. 1% XYLOCAINE 08/25/2017 9:23:09 AM 20 mL eKvin Poole 20 mL 1% XYLOCAINE given in lab by Kevin Poole in Right Groin via Subcutaneous. Medication (Drip) Medication Time Given Dosage/Unit Concentration/Unit Diluent (ml) Solution ISUPREL 08/25/2017 9:41:16 AM 4 mcg/min 1 mg 250 NaCl .9 4 mcg/min ISUPREL given in lab by Anesthesia, WELDER PRODUCTION LINE GAS via Peripheral IV. Pump/Drip Flow = 60 ml/hr using NaCl .9 with a concentration of 1 mg in 250 ml. Ordered by Kevin Poole. Reason: As per physicians verbal order. 08/25/2017 10:13:27 AM Financial #: [id number] 4 of 9 Patient Name: CHARY JOHNSON Study #: [id number] Initial MD: Kevin Poole Date of : 1930 Study Date: 08/25/2017 Initial Case Assessment Cardiovascular HR Rhythm NIBP Chest Pain 75 sr 121/67 0 Edema Present Skin color Skin None Normal Warm Dry Circulatory - Right Pulses Dorsalis Pedis 1 Scale (0,1,2,3,4,d) Circulatory - Left Pulses Dorsalis Pedis 1 Scale (0,1,2,3,4,d) Circulatory - Lower Extremities Color Lower Right Color Lower Left Normal Normal Neurological State Oriented to time-place- Alert Moves all extremities person Respiration - General Respiration Rate SpO2 (%) (B/min) 18 96 08/25/2017 10:13:27 AM Financial #: [id number] 5 of 9 Patient Name: CHARY JOHNSON Study #: [id number] Initial MD: Kevin Poole Date of : 1930 Study Date: 08/25/2017 Final Case Assessment Cardiovascular HR Rhythm NIBP 78 sr 118/59 Edema Present Skin color Skin None Normal Warm Dry Circulatory - Right Pulses Dorsalis Pedis 1 Scale (0,1,2,3,4,d) Circulatory - Left Pulses Dorsalis Pedis 1 Scale (0,1,2,3,4,d) Circulatory - Lower Extremities Color Lower Right Color Lower Left Normal Normal Neurological State Oriented to time-place- Alert Moves all extremities person Respiration - General Respiration Rate SpO2 (%) (B/min) 12 100 Chronological Log Time Study Chronological Log 8:55:15 Patient Name, D.O.B, / Armband Verified By R.N. 8:55:19 Consent signed by the physician and the patient and verified by the Drawing Box Tender staff. 8:55:28 Pre-op and post- op instructions given; patient acknowledges understanding of instructions. 8:55:30 Patient arrived via Bed. 8:55:38 Anesthesia at bedside. Assumes care of patient. Verbal Stimulation=~VERBAL~ Physical Stimulation=~PHYSICAL~ Airway=~AIRWAY~ Respiration=~RESPIR ATION~ 8:56:33 TOTAL=~TOTAL~. (0=absent, 1=limited, 2=present) 8:56:44 Patient has been NPO for More than 6Hrs. 8:56:48 Skin Breakdown- 8:57:20 Disposable Defibrillator Pads Placed On Patient. 08/25/2017 10:13:27 AM Financial #: [id number] 6 of 9 Patient Name: CHARY JOHNSON Study #: [id number] Initial MD: Kevin Poole Date of : 1930 Study Date: 08/25/2017 9:01:07 Parul Prominences Protected 9:01:13 A # 20 IV was noted in the Antecubital (left). Grade = 0 0.9ns kvo 9:01:17 A # 20 IV was noted in the Hand (left). Grade = 0 0.9ns kvo 9:01:20 History and physical on the chart or being dictated. Assessment: Initial Case, HR=75 BPM, Rhythm=sr, TAPS=421/67 mmhg, Chest Pain=0, Edema=None, Col or=Normal, Skin = Warm, Dry Right Pulses: Jacob Ped=1 Left Pulses: Jacob Ped=1 9:10:18 Lower Right Extremities: Color=Normal Lower Left Extremities: Color=Normal Neurological: State=Alert, Ox3, HOPE Respiration: Resp=18 B/min, SpO2=96 % 9:13:50 Table restraints applied according to hospital policy 9:13:57 Bilateral groins prepped with 2% chlorhexidine, and draped after a 3 minute waiting time. 9:18:15 MD arrived. Time Out. Correct patient, procedure, procedure equipment, site and side verified with physicia n present. Time 9:20:00 concurred by MD, individual staff and WELDER PRODUCTION LINE GAS. Time Out #2 - Consents verified, patient in correct position, all results are labled and displa yed, safety precautions 9:20:20 taken, antibiotics administered. Time out concurred by MD, individual staff and WELDER PRODUCTION LINE GAS in procedu re 9:20:45 Case Start 9:20:50 20 mL 1% XYLOCAINE given in lab by Kevin Poole in Left Groin via Subcutaneous. 9:21:09 Vascular access was obtained in the Fem Vein (left). 9:21:12 Vascular access was obtained in the Fem Vein (left). 9:21:19 Vascular access was obtained in the Fem Vein (left). 9:22:04 A SHEATH, EPS, FR5 FAST CATH FR 5 was advanced into the Fem Vein (left) using the Modified Seldinger technique. 9:23:09 20 mL 1% XYLOCAINE given in lab by Kevin Poole in Right Groin via Subcutaneous. 9:23:11 A SHEATH, EPS, FR5 FAST CATH FR 5 was advanced into the Fem Vein (left) using the Modified Seldinger technique. 9:23:14 A SHEATH, EPS, FR5 FAST CATH FR 5 was advanced into the Fem Vein (left) using the Modified Seldinger technique. 9:23:38 Vascular access was obtained in the Fem Vein (right). 9:23:54 Vascular access was obtained in the Fem Vein (right). 9:24:30 A SHEATH, EPS, FR6 FAST CATH FR 6 was advanced into the Fem Vein (right) using the Modified Seldinger technique. 9:24:38 A SHEATH, EPS, FR8 FAST CATH FR 8 was advanced into the Fem Vein (right) using the Modified Seldinger technique. A CATHETER, JSN, QUAD FR 5 was advanced vis Fem Vein (left) and placed in the CS. Placement was visually 9:26:28 confirmed under fluoroscopy. A CATHETER, JSN, QUAD FR 5 was advanced vis Fem Vein (left) and placed in the HIS. Placement wa s visually 9:27:05 confirmed under fluoroscopy. A CATHETER, JSN, QUAD FR 5 was advanced vis Fem Vein (left) and placed in the RVA. Placement wa s visually 9:27:17 confirmed under fluoroscopy. A CATHETER, JSN, QUAD FR 5 was advanced vis Fem Vein (left) and placed in the HRA. Placement wa s visually 9:27:27 confirmed under fluoroscopy. 9:30:54 EPS in progress A CATHETER, CELSIUS, 4MM, D TYPE QUAD FR 7 was advanced vis Fem Vein (right) and placed in the Isthmus. 9:33:49 Placement was visually confirmed under fluoroscopy. 9:34:40 RF Ablation of the Isthmus with a CATHETER, CELSIUS, 4MM, D TYPE QUAD FR 7. 08/25/2017 10:13:27 AM Financial #: [id number] 7 of 9 Patient Name: CHARY JOHNSON Study #: [id number] Initial MD: Kevin Poole Date of : 1930 Study Date: 08/25/2017 9:40:40 Ablation procedure performed: SVT. 9:40:45 EP Procedure was performed. 4 mcg/min ISUPREL given in lab by Anesthesia, WELDER PRODUCTION LINE GAS via Peripheral IV. Pump/Drip Flow = 60 ml/h r using NaCl .9 with 9:41:16 a concentration of 1 mg in 250 ml. Ordered by Kevin Poole. Reason: As per physicians verbal order. 9:48:03 Isuprel off. 9:55:49 Ablation procedure performed: SVT. 9:55:53 EP Procedure was performed. 9:56:53 All catheter(s) removed without difficulty 10:00:24 Right groin sheaths removed; pressure applied to access sites by RW. 10:00:43 Left groin sheaths removed; pressure applied to access sites by HH. 10:06:08 Case End 10:10:37 Sterile dressings applied to sites. Sites wnl. 10:10:53 No case complications noted. 10:11:48 CICU called. Spoke to Emely 10:11:59 Bedside Report will be given. 10:12:01 Defibrillator and ground pads removed. Skin intact. Assessment: Final Case, HR=78 BPM, Rhythm=sr, DHMW=930/59 mmhg, Edema=None, Color=Normal, Skin = Warm, Dry Right Pulses: Jacob Ped=1 Left Pulses: Jacob Ped=1 10:12:23 Lower Right Extremities: Color=Normal Lower Left Extremities: Color=Normal Neurological: State=Alert, Ox3, HOPE Respiration: Resp=12 B/min, OqY5=545 % 10:16:50 Patient moved to stretcher End Study - Contrast Media Used In Study Contrast Total Opened (mL) Total Used (mL) Total Wasted (mL) Omnipaque 0 0 0 End Study - Maximum Contrast Load Max Contrast Load (mL) 484.4 End Study - Radiation Exposure Fluoro Time (minutes) 2.5 08/25/2017 10:13:27 AM Financial #: [id number] 8 of 9 Patient Name: CHARY JOHNSON Study #: [id number] Initial MD: Kevin Poole Date of : 1930 Study Date: 08/25/2017 End Study - Patient Disposition Complications Transferred To Interventional Outcome No Telemetry Bed successful 08/25/2017 10:13:27 AM Financial #: [id number] 9 of 9
[2017-08-25] MEDS ORDERED: ONDANSETRON ODT 4 MG TAB PO PRN (10:15)
[2017-08-25] MEDS ORDERED: DO NOT ADM ANY ANTICOAGULANT DRUGS PRN (10:20)
--- NOTE | 2017-08-25 10:56 | MA ---
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 INDICATIONS: Ms. Weinberg is an 87-year-old female with history of tachyarrhythmia for years, recent hospitalization, referred for electrophysiology study and ablation. The risks, the nature and the benefits of the procedure were clearly said to her. The risks include pneumothorax, cardiac perforation, stroke, need for open heart surgery and even . The patient understood and agreed to proceed. PROCEDURE: After written informed consent was obtained, the patient was brought to the EP Lab where she was prepped and draped in the usual sterile fashion. Conscious sedation was initiated and maintained throughout the procedure by the anesthesiologist. Once sedation verified, the right and left inguinal areas were anesthetized with 2% Xylocaine. Using modified Seldinger technique, the left femoral vein was cannulated on 3 occasions. Three guidewires were advanced over the wire. A 5-Cameroonian Hemaquet was advanced. Then, the right femoral vein was cannulated on 2 occasions and 2 guidewires were advanced over the wire. A 6 and an 8-Cameroonian Hemaquet were advanced. Then, under fluoroscopic guidance through the and 5 and 6-Cameroonian Hematocrit, four 5-Cameroonian Matt curved quadripolar electrophysiology catheters were advanced and place on the His, upper right atrium, coronary sinus and right ventricular apex. Basic intervals were measured; they were within normal limits. At that point atrial pacing protocol was performed. Atrial pacing protocol consisted of incremental atrial pacing as well as program stimulation with 410 cycle length and up to 1 extrastimuli delivered. During atrial pacing protocol, supraventricular tachyarrhythmia with intracardiac characteristic of AV karishma reentrant tachycardia was induced. It was pace terminated. Then, ventricular pacing protocol was performed. There was VA conduction; it was concentric. Then, through the 8-Cameroonian Hemaquet, a [email or web address].comter a 4 mm D-curved mapping and radiofrequency ablation catheter was advanced. Using NodePrime endocardial solution mapping system, a 3-dimensional configuration of the right atrium was obtained. Points were taken at the SVC, IVC, TV6 and CS. Then, the catheter was placed at the critical isthmus. Then the catheter was placed at the tricuspid valve annulus. When the big V and the small A observed, radiofrequency energy was delivered. The patient was in junctional rhythm. Further burn was delivered in the area. Then, atrial pacing protocol was performed again. Wenckebach, which at this point around 410 milliseconds. Then, atrial pacing protocol was repeated again; no tachyarrhythmia was induced. Isuprel was infused. Atrial and ventricular pacing protocol was repeated again; no tachyarrhythmia was induced. At that point, the procedure was complete. All catheters were removed. The patient tolerated the procedure. No incident reported, blood loss minimal. 1. ELECTROCARDIOGRAM: At baseline, the patient was in sinus. Post-procedure electrocardiogram was unchanged. 2. BASIC INTERVALS: Base cycle length was around 830 milliseconds, AH at 70 and HV at 54 milliseconds. 3. ATRIAL PACING PROTOCOL: Wenckebach of the node at baseline was around 230 milliseconds, post-ablation it was 410 milliseconds. 4. VENTRICULAR PACING PROTOCOL: There was VA conduction. No tachyarrhythmia was induced. 5. 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 Pathway was mapped and ablated. Ablation was successful. 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 COMMENT AND RECOMMENDATIONS: The patient is going to be transferred to the telemetry unit. He will be observed. When stable, can be discharged home. MD MARS Mayes/JOSEPH , 10:10 AM , 10:55 AM
[2017-08-25] MEDS ORDERED: PHENYLEPH/NS 1000 MCG/10 ML SYR IV ONE (12:00)
[2017-08-25] MEDS ORDERED: PROPOFOL 200 MG/20 ML AMP IV ONE (12:00)
[2017-08-25] MEDS ORDERED: ONDANSETRON ODT 4 MG TAB ONE (12:00)
[2017-08-25] MEDS ORDERED: SODIUM CHLORID 0.9% 500 ML INJ 1,000 ML IV ONE (12:00)
[2017-08-25] MEDS: SODIUM CHLORIDE 0.9% FLUSH 10 ML FLUSH IV FLUSH SCH (16:41)
[2017-08-25] MEDS: MULTIVITAMIN-OPHTHALMIC 1 TAB PO SCH (16:41)
--- NOTE | 2017-08-25 16:43 | HHI.DS ---
Discharge Summary Admission Date August 22, 2017 at 12:10 Discharge Date: August 25, 2017 Admitting Diagnosis Arrhythmia, elevated troponin (1) Elevated troponin ICD Code: R74.8 - Abnormal levels of other serum enzymes Status: Acute (2) Tachyarrhythmia ICD Code: R00.0 - Tachycardia, unspecified Status: Acute Procedures EP study with ablation Brief History - From Admission The patient is an 87 year old female brought to the ER for evaluation of elevated heart rate. She had nausea, vomiting, and 3 loose stools last night. This morning she went to have an outpatient xray done on her left leg, which has been painful for a few weeks. She was noted at that time to have elevated heart rate. EMS was called and patient's heart rate was approximately 170, apparently SVT. She was given adenosine 6 mg IV. She denies chest pain. She had some shortness of breath, but that has resolved. No nausea, vomiting, diarrhea today. CBC/BMP: 08/22/17 1015 08/23/17 0640 Significant Findings Laboratory Tests Test 08/22/17 18:48 08/22/17 23:39 08/23/17 06:40 Troponin I 0.17 NG/ML (0.02-0.05) 0.18 NG/ML (0.02-0.05) Blood Urea Nitrogen 23 MG/DL (7-18) Calcium Level 8.0 MG/DL (8.5-10.1) Chloride Level 111 MEQ/L (98-107) Estimat Glomerular Filtration Rate 64 ML/MIN (>89) PE at Discharge GENERAL: This is a well-nourished, well-developed patient, in no apparent distress. CARDIOVASCULAR: RRR, no gallops, or rubs. RESPIRATORY: Positive wheezing bilaterally GASTROINTESTINAL: Abdomen soft, non-tender, nondistended. Positive bowel sounds MUSCULOSKELETAL: Extremities without clubbing, cyanosis, or edema. Pedal pulses appreciated NEUROLOGICAL: Awake and alert. Moves all extremity. Normal speech.no focal neurological deficit Hospital Course 87 years old female with history breast cancer status post mastectomy renal cancer status post right nephrectomy and lymphoma in remission of admitted with SVT patient placed on telemetry echocardiogram cardiac enzyme cycling, consulted cardiology, IV hydration, patient underwent EP study with ablation successfully, cleared by cardiology to be discharged [id number] encounter performed with the patient on discharge day, as well as physical exam, summary of hospitalization course and postdischarge plan has been D/W the patient. D/W nurse D/W case assembler. Discharge medications reviewed and printed and signed, post discharge follow up visit with PCP and other specialist as well as Brief hospital course and discharge summary has been placed. Pt Condition on Discharge: Fair Discharge Disposition: Discharge Home Discharge Time: > 30 minutes Discharge Instructions DIET: Follow Instructions for: Heart Healthy Diet Activities you can perform: Weight Bearing as Luna Follow up Referrals: Cardiology - 1 Week with Kevin Poole MD Continued Medications: Aspirin (Aspirin Children's) 81 Mg Chew 81 MG CHEW EVERY OTHER DAY, TAB 0 Refills Calcium Ascorbate (Calcium Ascorbate) 500 Mg Tab 500 MG PO BID for Calcium Supplement, TAB 0 Refills Multiple Vitamins W/ Minerals (Ocuvite) 1 Tab 1 TAB PO DAILY for Nutritional Supplement, TAB 0 Refills Probiotic Product (Probiotic) 1 Tab Tab 1 TAB PO DAILY Gerardo Radford MD August 25, 2017 16:43
--- NOTE | 2017-08-26 14:05 | EKG ---
Date Performed: 08/25/2017 Time Performed: 10:46:18 PTAGE: 87 years EKG: Sinus arrhythmia Poor R wave progression - probable normal variant Inferior T wave changes are nonspecific Borderline ECG NO PREVIOUS TRACING DOCTOR: Larry Doyle Interpretating Date/Time 08/26/2017 14:01:03
== END 2017-08-25 18:03 | disposition home or self-care (01) ==
LOC: NEPC 09:57 → NEDA 12:10 → NEPGCP 14:58 → HCIS 08-23 21:39
PROVIDERS: ADMIT Hospitalist; ATTEND Hospitalist
DX: I47.1 Supraventricular tachycardia (principal); I10 Essential (primary) hypertension; R74.8 Abnormal levels of other serum enzymes; N17.9 Acute kidney failure, unspecified; R06.02 Shortness of breath; R11.2 Nausea with vomiting, unspecified; R06.2 Wheezing; R19.7 Diarrhea, unspecified; C85.90 Non-Hodgkin lymphoma, unspecified, unspecified site; M25.562 Pain in left knee; R05 Cough; E78.5 Hyperlipidemia, unspecified; R06.00 Dyspnea, unspecified; Z90.5 Acquired absence of kidney; Z85.3 Personal history of malignant neoplasm of breast; Z90.11 Acquired absence of right breast and nipple; Z87.891 Personal history of nicotine dependence; Z85.528 Personal history of other malignant neoplasm of kidney
CPT/HCPCS: 00537; 71046; 73564; 80048; 80053; 82550; 83735; 84484; 85025; 85610; 85730; 93005; 93306; 93613; 93623; 93653; 94640; 94664; 96360; 96361; 96372; 99285; C1730; C1732; C2630; G0378; J1644; J2370; J7040; J3010